=== PATIENT | male | born 1940 | race Caucasian/White ===

== ENCOUNTER 2019-03-20 20:16 | Inpatient (IN) | payer OTHER ==
[~2019-03-20] VITALS: Ht 188 cm; Wt 71.0 kg
[2019-03-20 19:55] VITALS: BP 91/69
[~2019-03-20 20:16] MED LIST: ASPIR 8181 MG PO; MAGOX 400400 MG PO; NF; PULMICORT0.5 MG/22 INH
[2019-03-20 22:31] LABS: BE(vivo) -2.8 mmol/L (-2 to +3); HCO3 23.4 mmol/L (22.0-26.0); PCO2 45.8 mmHg (35.0-45.0); sO2 92.5 % (92.0-98.0)
[2019-03-20 22:32] LABS: pH 7.326 (7.360-7.450)
--- NOTE | 2019-03-20 22:35 | NUR ---
PT TRANSFERED FROM CCU TO ICU AT 2200. PT ALERT AND ORIENTED X4. PT ST ON THE MONITOR. PT HAVING AUDIBLE WHEEZES AND GRUNTING AT TIMES. PT ON OPTIFLOW AT 35 L. 50 % FIO2. PT VERBALIZES, "I NEED MY ALBUTEROL INHAILER." SPOKE TO DR HERNANDEZ AT 2215 REGARDING RADIOLOGIST REPORT ON TENSION PNEUMOTHORAX WITH SLIGHT SHIFT TO THE RIGHT. IR TEAM CALLED BY WATCH MANUFACTURING SUPERVISOR. WILL CONTINUE TO MONITOR PT.
[2019-03-21] VITALS (23 sets, daily range): BP systolic 107–150; BP diastolic 45–86
--- NOTE | 2019-03-21 00:33 | NUR ---
PT LEFT FOR CHEST TUBE PLACEMENT BY DR CHANG AT 2159. ARRIVED BACK TO ICU AT 0013. PT EXPERIENCING CONSTANT DRY COUGH. PT C/O PAIN 10/10 AT CHEST TUBE PLACEMENT SITE. CHEST TUBE TO -20 SUCTION PER ORDERS. PT GIVEN MORPHINE FOR PAIN. WILL CONTINUE TO MONITOR.
[2019-03-21 05:30] LABS: HEMATOCRIT 37.7 % (42.0-52.0); HEMOGLOBIN 12.4 gm/dL (14.0-18.0); MCH 34.1 pg (26.0-34.0); MCHC 32.9 g/dL (28.0-37.0); MCV 103.8 fL (80.0-100.0); RBC 3.63 mil/uL (4.50-6.00); RDW 12.7 % (10.5-14.5); WBC 17.5 thou/uL (4.0-11.0)
[2019-03-21 05:35] LABS: APTT 26.4 Seconds (24.5-32.8); PROTIME 10.1 Seconds (9.3-11.4)
[2019-03-21 05:41] LABS: CALCIUM 8.6 mg/dL (8.5-10.1); CREATININE 1.2 mg/dL (0.7-1.3); POTASSIUM 5.2 mmol/L (3.5-5.1)
[2019-03-21] MEDS ORDERED: VITAMIN E400 UNIT PO (09:20)
[2019-03-21] MEDS ORDERED: NORWEGIAN COD1 EACH PO (09:21)
[2019-03-21] MEDS ORDERED: CALCIUM 600 +1 EAC1 PO (09:22)
[2019-03-21] MEDS ORDERED: KLOR-CON 1010 MEQ PO (09:23)
--- NOTE | 2019-03-21 10:51 | NUR ---
CM ASSESSMENT: CASE OPENED FOR DC PLANNING. CLINICAL INFO REVIEWED. PT DIRECT ADMITS FROM [facility], [place]IVES IN [place] 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 INDEPENDENT WITH ADLS, HAS HOME O2 AND NEBULIZER FROM [facility]. STATES USES O2 PRN 5 LITERS. ANA SOLITARIO IS HIS EPIC SPECIALIST, BULL DAILY HIS PCP. PT IS INDEPENDENT WITH ADLS AND ASSISTS WITH IADLS. HAS LEFT CT FROM PNEUMOTHORAX. CM AVAILABLE TO ASSIST WITH COORDINATION OF DC PLANS. POSSIBLE HH AT DC.
--- NOTE | 2019-03-21 13:53 | HC ---
[facility] [place] [address] CONSULTATION Name: KEVIN HAILE Room #: 247-P [facility] IN .R.#: [id number] Admission: 03/20/19 ������������������ Attend Phys: Larry Alan MD Discharge: ������������������ Date of : 40 Report #: [id number] THIS REPORT FOR: //name// CC: Larry Strong DATE OF SERVICE: 03/20/2019 PULMONARY CONSULTATION REFERRING PHYSICIAN: Dr. Alan. REASON FOR REFERRAL: Large left-sided pneumothorax. HISTORY OF PRESENT ILLNESS: The patient is a 78-year-old white male, with known COPD, transferred from [place], [place] for pneumothorax. A pulmonary consultation was requested. The patient was last hospitalized in June 2017. He has known COPD. He has smoked, but quit few years ago. The patient presented to the [facility] with complaints of dyspnea. Chest x-ray revealed pneumothorax. He was transferred here. Chest x-ray performed here shows a large, near complete left lung pneumothorax with slight shift of the mediastinum to the right. The patient appears dyspneic. Denies any chest pain. Denies any recent trauma. Stated his dyspnea occurred suddenly. The patient denies any past history of pneumothorax. 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 PAST SURGICAL HISTORY: Notable for repair of the abdominal aortic aneurysm in 2017 by a stent. ALLERGIES: None to medications. HOME MEDICATIONS: Include aspirin, nebulized Pulmicort, nebulized levalbuterol, ipratropium. FAMILY HISTORY: Notable for heart disease and hypertension in father. SOCIAL HISTORY: The patient has smoked up to 2 packs a day, quit in 2017. He [facility] [address] [place] [address] CONSULTATION Name: KEVIN HAILE Room #: 247-P [facility] IN ..#: [id number] Admission: 03/20/19 ������������������ Attend Phys: Larry Alan MD Discharge: ������������������ Date of : 40 Report #: [id number] quit drinking approximately 17 years ago. REVIEW OF SYSTEMS: As mentioned above, otherwise 10-point system review negative. PHYSICAL EXAMINATION: GENERAL: He is awake, alert, in mild distress due to dyspnea. VITAL SIGNS: Temperature is 97.5 degrees Fahrenheit, pulse is 100, respiratory rate is 20, blood pressure 90/69 mmHg, saturation is 92% on supplemental O2. HEENT: Normocephalic, atraumatic. NECK: Supple, without lymphadenopathy or thyromegaly. CHEST: Breath sounds are decreased in the right, absent in the left. No obvious wheezing. CARDIOVASCULAR: Normal S1, S2. There are no murmurs or gallop. There is no JVD, no carotid bruit. Pulses are 2+/4+ bilaterally. ABDOMEN: Soft, nontender, no organomegaly or masses felt. GENITOURINARY: Deferred. RECTAL: Deferred. EXTREMITIES: No edema, cyanosis or clubbing. Chest x-ray shows near complete pneumothorax in the left lung field. LABORATORY DATA: Arterial blood gas revealed pH 7.32, pCO2 of 45, pO2 of 70 on FiO2 of 50%. IMPRESSION: 1. Pneumothorax, complete pneumothorax on the left, large. Consult with interventional radiology for placement of chest tube. 2. Chronic obstructive pulmonary disease, emphysema in type. 3. History of tobacco use. 4. History of abdominal aortic aneurysm, status post repair. 5. Hypertension. RECOMMENDATIONS: As mentioned above, bronchodilators, corticosteroids and deep venous thrombosis and gastrointestinal prophylaxis will be initiated. If pneumothorax does not resolve over time, the patient may need surgical intervention. Thank you for this consultation. ��������������������������������������������� <ELECTRONICALLY SIGNED> ���������������������������������������� By: Jose Campos MD ��������������������������������������������� 03/21/19 1353 [id number] Jose Campos MD /nt
--- NOTE | 2019-03-21 17:52 | NUR ---
Patient progressing as tolerating diet without emesis or nausea. O2 weaned to 5l/NC, resp and heart rate increase with activity. Bubbling noted with chest tube,
--- NOTE | 2019-03-21 23:58 | NUR ---
A LARGE AIR LEAK NOTED IN CHEST TUBE CHAMBER AT 2330. NO SIGNS OF SUBCUTANEOUS AIR NOTED ON PALPATION AROUND CHEST TUBE INSERTION SITE. PT DOESN'T APPEAR TO BE IN ANY DISTRESS. SATTING 98% ON 7L O2 HIGH FLOW. WILL CONTINUE TO MONITOR.
[2019-03-22] VITALS (18 sets, daily range): BP systolic 99–136; BP diastolic 45–83
[2019-03-22 05:47] LABS: HEMOGLOBIN 12.3 gm/dL (14.0-18.0); MCH 34.2 pg (26.0-34.0); MCHC 33.2 g/dL (28.0-37.0); MCV 103.1 fL (80.0-100.0); RBC 3.59 mil/uL (4.50-6.00); RDW 12.5 % (10.5-14.5); WBC 12.4 thou/uL (4.0-11.0)
[2019-03-22 05:51] LABS: CALCIUM 8.7 mg/dL (8.5-10.1); CREATININE 1.1 mg/dL (0.7-1.3); POTASSIUM 4.8 mmol/L (3.5-5.1)
--- NOTE | 2019-03-22 18:26 | NUR ---
Explained all treatments and medications as given. Patient expressed he has pain control. Chest tube intact with some tidaling and bubbling noted, however, no increase in this occurance. Assessments and vital signs as documented. Plan of care is to continue to monitor patient assessments q4 hours, increase activity, pain control, and improved breathing. Patient progressing towards plan of care.
[2019-03-23] VITALS (7 sets, daily range): BP systolic 106–137; BP diastolic 52–73
--- NOTE | 2019-03-23 05:54 | NUR ---
END OF SHIFT SUMMARY: No events overnight; progressing toward goals. No c/o of SOA. Minimal pain at chest tube site. Left chest tube remains patent to -20 cmH20, still has small to moderate air leak, no crepitus or drainage this shift. O2 sat remains > 95% on 4 L HFC. Sat is 88-90% on room air. Monitor remains sinus rhythm. Voiding without difficulty.
--- NOTE | 2019-03-24 04:52 | NUR ---
RECEIVED PT'S CARE AT 1935; PT. ON BED; REQUESTED PRIVACY DUE TO VOIDING; DURING ASSESSMENT PT. AOX4; IRRITABLE DUE TO IV ALARM PUMP ON; REQUESTED TO KNOW HOW TO TURN PUMP OFF; EDUCATED TO CALL EVERY TIME PUMPS ALARM GOES OFF; ST. "OH GREAT"; "I CAN'T NOT BELIEVE THIS"; "I HAVE TO CALL YOU EVERY TIME"; L. SIDE CHEST TUBE ASSESS"; LEAK PRESENT; SUCTION ON; NO C/O SOB; NO RESTLESSS; PER PHYSICIAN NOTES; PHYSICIANS AWARED OF LEAK; EDUCATED ABOUT THE NEED TO KEEP O2 ON; NO ANSWER BACK; HS SCHEDULED MEDICATION GIVEN; EDUCATED ABOUT CALLING BEFORE GETTING OUT FROM BED; NOT ANSWER BACK; EYES ROLLED; ABLE TO TURN FROM SIDE TO SIDE; SCDs APPLIED; ABLE TO REST FOR A FEW HOURS WITH EYES CLOSED; ASSESSMENT CHARGED; FOLLOWING POC; MONITORING; WILL PASS ON REPORT.
[2019-03-24 05:20] VITALS: BP 118/71
[2019-03-24 07:35] VITALS: BP 127/85
[2019-03-24 10:50] VITALS: BP 117/756
[2019-03-24 15:50] VITALS: BP 140/93
--- NOTE | 2019-03-24 20:03 | NUR ---
ASSESSMENT CHARTED, VSS, ALERT AND ORIENTED, RIGHT CHEST TUBE, -20 SUCTION TO WALL, NO COMPLAINTS OF PAIN. UP TO CHAIR. WILL CONTINUE TO MONITOR
[2019-03-24 20:44] VITALS: BP 110/73
[2019-03-25 03:54] VITALS: BP 106/72
--- NOTE | 2019-03-25 06:04 | NUR ---
ASSESSMENT CHARTED. VSS. PT DENIES PAIN, N/V, DIZZINESS. X1 ASSIST TO COMMOD- 1 LARGE SOFT BROWN BM. 3 L NC. L CHEST TUBE IN PLACE, SMALL LEAK, DRESSING CDI. PT COMPLAINS OF BEING WOKEN UP, THERAPUTIC COMMUNICATION PT IS ABLE TO CALM DOWN AND SLEEP. WILL CONTINUE TO MONITOR AND WITH POC.
[2019-03-25 07:45] VITALS: BP 119/78
[2019-03-25 11:59] VITALS: BP 106/71
[2019-03-25 15:07] LABS: URINE BILIRUBIN NEGATIVE (Negative); URINE BLOOD NEGATIVE (Negative); URINE CLARITY CLEAR; URINE COLOR YELLOW; URINE GLUCOSE-RANDOM* NEGATIVE (Negative); URINE KETONES NEGATIVE (Negative); URINE LEUKOCYTES NEGATIVE (Negative); URINE NITRITE NEGATIVE (Negative); URINE PROTEIN (DIPSTICK) NEGATIVE (Negative); URINE SPECIFIC GRAVITY <= 1.005 (1.005-1.035); URINE UROBILINOGEN 0.2 E.U./dl (0.2-1.0)
[2019-03-25 15:20] VITALS: BP 121/72
--- NOTE | 2019-03-25 17:29 | NUR ---
ORDER RECEIVED FOR SURGERY ON 03/26/19. RECEIVING IV ANTIBIOTICS. CHEST TUBE STILL LEAKING WITH TIDALING. WILL CONTINUE TO ASSESS AND ASSIST WITH ADLs NEEDED.
[2019-03-25 20:45] VITALS: BP 99/67
[2019-03-26] VITALS (7 sets, daily range): BP systolic 80–118; BP diastolic 46–95
--- NOTE | 2019-03-26 02:35 | NUR ---
ASSESSMENT CHARTED. PT COMPLAINS OF BED ALARMS AND BEING WOKEN UP. DENIES CP, SOA, N/V, DIZZINESS. ST BY STEADY ON FEET. 3 L NC. L CHEST TUBE STILL LEAK TIDLING. HIBASCRUB PER ORDERS THIS EVENING. PLAN FOR SURGERY THIS AFTERNOON. WILL CONTINUE TO MONITOR AND WITH POC.
[2019-03-26 05:03] LABS: HEMOGLOBIN 13.1 gm/dL (14.0-18.0); MCH 34.5 pg (26.0-34.0); MCHC 33.6 g/dL (28.0-37.0); MCV 102.9 fL (80.0-100.0); RBC 3.79 mil/uL (4.50-6.00); RDW 12.1 % (10.5-14.5); WBC 11.4 thou/uL (4.0-11.0)
[2019-03-26 05:15] LABS: CALCIUM 8.8 mg/dL (8.5-10.1); MAGNESIUM 2.2 mg/dL (1.8-2.4); POTASSIUM 4.5 mmol/L (3.5-5.1); TOTAL BILIRUBIN 0.3 mg/dL (<0.1-1.0); TOTAL PROTEIN 6.5 g/dL (6.4-8.2)
[2019-03-26 05:45] LABS: FOLIC ACID 20.7 ng/mL (8.6-58.9)
--- NOTE | 2019-03-26 08:29 | NUR ---
PT NPO AND WILL HAE VATS PROCEDURE TODAY. WILL CONTINUE TO ASSESS.
--- NOTE | 2019-03-26 15:07 | NUR ---
Pt assessed for early day 6 LOS. Pt having surgery today - bronchoscopy with L vat per notes. NPO since midnight, but previously on a regular diet. Chart reviewed as pt unavailable. Eating extremely high PO the last 3 days with 92% meal average - typically eating 90-100% of most meals. Per orders, pt receiving Ensure Enlive up to twice daily - drinking 50-60% of 2 supplements yesterday before going NPO. Weight is up over nearly 2 yrs --> from 140.5# on 06/20/17 to current weight of 155.6# per 03/23/19. Low nutrition risk if diet able to resume when medically appropriate following surgery and if meal intakes remain > 75%. Will follow up again next week.
--- NOTE | 2019-03-26 17:07 | NUR ---
REPORT GIVEN TO PAYAL LEE IN THE ICU.
--- NOTE | 2019-03-26 18:55 | NUR ---
PT RECIEVED FROM OR POST L VATS PROCEDURE. PRECEDEX GTT RUNNING AT 0.5 MCG/KG/HR. PT WAS REPOSITIONED IN BED AND HOOKED UP TO CONTINUOUS MONITORING. CHEST TUBE WAS CONNECTED TO SUCTION. PT COMPLAINED OF PAIN 10/10, TREATED WITH PRN MORPHINE. NS @ 80ML/HR STARTED. PATIENT EDUCATED ON ROOM SETTINGS AND CALL LIGHT. ASSESSMENT COMPLETED BY THIS RN. BED ALARM SET. PT RESTING COMFORTABLY.
[2019-03-27] VITALS (26 sets, daily range): BP systolic 86–138; BP diastolic 46–98
[2019-03-27 06:04] LABS: BASOPHILS 0.4 % (0.0-2.0); EOSINOPHILS 0.1 % (0.0-3.0); HEMATOCRIT 36.1 % (42.0-52.0); HEMOGLOBIN 12.1 gm/dL (14.0-18.0); LYMPHOCYTES 7.8 % (24.0-44.0); MCH 34.2 pg (26.0-34.0); MCHC 33.6 g/dL (28.0-37.0); MCV 101.9 fL (80.0-100.0); MONOCYTES 8.1 % (1.0-8.0); PLATELET COUNT 205 thou/uL (150-400); POLYS 83.6 % (36.0-66.0); RBC 3.54 mil/uL (4.50-6.00); RDW 12.2 % (10.5-14.5); WBC 16.8 thou/uL (4.0-11.0)
--- NOTE | 2019-03-27 06:06 | NUR ---
END OF SHIT NOTE: ASSUMED CARE AT 1900 03/26. NO EVENTS OVER NIGHT. COMPLAINED OF SHARP/STABBING PAIN AT CHEST TUBE SITE, TREATED WITH PRN MORPHINE. CT REMAINS CONNECTED TO CONTINUOUS SUCTION AT -89gxN19. ORDERS TO ADVANCE DIET TOLERATED, PT SO FAR HAS ONLY REQUESTED ICE CHIPS. PT W/O FALLS, ALL HIGH FALL PRECAUTIONS IN PLACE. PT RESTING COMFORTABLY.
[2019-03-27 06:26] LABS: ALBUMIN 2.6 g/dL (3.4-5.0); CREATININE 0.9 mg/dL (0.7-1.3); POTASSIUM 4.9 mmol/L (3.5-5.1); TOTAL BILIRUBIN 0.6 mg/dL (<0.1-1.0); TOTAL PROTEIN 5.8 g/dL (6.4-8.2)
[2019-03-27 06:38] LABS: BE(vivo) 2.3 mmol/L (-2 to +3); HCO3 26.9 mmol/L (22.0-26.0); PCO2 42.1 mmHg (35.0-45.0); PO2 90.2 mmHg (80.0-100.0); pH 7.424 (7.360-7.450)
--- NOTE | 2019-03-27 10:07 | NUR ---
ASSUMMED CARE OF PT.--VW
--- NOTE | 2019-03-27 11:51 | NUR ---
FOLLOWING FOR DC PLANNING. ADMIT WITH PNEUMOTHORAX AND HAD CHEST TUBE WITH AIR LEAK FOR SEVERAL DAYS, NOW IS POD #1 VAT WITH PLEURODESIS. LEFT CHEST TUBE REMAINS. HX COPD. LIVES WITH SPOUSE WHO IS MUCH YOUNGER AND 8 Y.O. SON AND ACTIVE QUALITY ASSURANCE. WILL RESUME PT/OT TO DETERMINE IF REHAB NEEDED.
--- NOTE | 2019-03-27 13:00 | NUR ---
~1100-PT W INAPPROPRIATE COMMENTS TO NSG STAFF.LIMITS SET.CARE TURNED OVER TO ON COMING RN. SEVERAL FOOD OPTIONS BROUGHT TO PT-HE IS REFUSING THEM ALL.--VW
--- NOTE | 2019-03-27 13:38 | HC ---
[facility] [place] [address] CONSULTATION Name: KEVIN HAILE Room #: 245-P [facility] IN ..#: [id number] Admission: 03/20/19 ������������������ Attend Phys: Larry Alan MD Discharge: ������������������ Date of : 40 Report #: [id number] THIS REPORT FOR: //name// CC: Larry Strong DATE OF SERVICE: 03/21/2019 HISTORY OF PRESENT ILLNESS: Consultation from Dr. Campos regarding left pneumothorax with pleural chest tube placed and air leak. The patient was a direct admit from [facility] for pneumothorax. The patient has had a small pleural chest tube placed on the left side and remains having a vtfx-kp-thlterrr air leak. Chest x-ray shows lung is re-expanded post pleural chest tube placement. PAST MEDICAL HISTORY: COPD, pneumonia and anxiety. 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 History of pneumonia, anxiety, asthma, alcohol abuse, tobacco abuse and a chronic back pain. PAST SURGICAL HISTORY: Infrarenal abdominal aortic stent graft placement. The patient did also have a history of a large bleb in the past in 2017, but no treatment reported at that time. The patient denies ever having had a previous chest tube placed. SOCIAL HISTORY: The patient is . Smokes a pack a day, essentially his whole life as per the patient; he did quit, he states, a few months ago. FAMILY HISTORY: Father had heart disease. Mother, not reported. Father also has hypertension. ALLERGIES: No known allergies. 1. HOME MEDICATIONS: 2. 1. Aspirin. 3. 2. Caltrate. 4. 3. Potassium chloride. 5. 4. Pulmicort. 6. 5. Mag oxide 400 mg. 7. 6. Vitamin A and vitamin D combination. 8. 7. Vitamin E. 9. 8. ProAir inhaler. 10. 9. Atrovent. 10. Albuterol. REVIEW OF SYSTEMS: Review of systems completed. GENERAL: The patient denies any fatigue, difficulty sleeping. [facility] [address] [address] CONSULTATION Name: MICKEVIN Melita Room #: [address] [place] [address] [place] ..#: [id number] Admission: 03/20/19 ������������������ Attend Phys: Larry Alan MD Discharge: ������������������ Date of : 40 Report #: [id number] HEENT: Denies any headache, vertigo or hearing loss. RESPIRATORY: Denies any dyspnea on exertion or orthopnea. Does have some shortness of breath related to this incident. Denies any wheezing or coughing. CARDIOVASCULAR: Denies any chest pain, jaw pain or murmur. SKIN: Denies any rashes, eczema or psoriasis. ENDOCRINE: Denies cold feet, night sweats or lack of concentration. GASTROINTESTINAL: Denies any nausea, vomiting, diarrhea or constipation. GENITOURINARY: Denies any urinary frequency, bloody urine or painful urination. NEUROLOGIC: Denies any seizures or neuropathy. PSYCHIATRIC: Denies any hallucination. Denies depression, but does have anxiety. MUSCULOSKELETAL: Denies joint pain, stiffness or swelling; however, does have some lower back discomfort at times. IMMUNOLOGIC: Denies any lupus, rheumatoid arthritis or celiac disease. PHYSICAL EXAMINATION: VITAL SIGNS: Blood pressure is 116/60, pulse 83, sinus rhythm on monitor, temperature 36.1 and O2 sat 94% on 5 liters of oxygen via nasal cannula. GENERAL: The patient is well developed, well nourished, has normal mentation. HEENT: Eyes are PERRLA. He is normocephalic. Gaze appearing conjugate in all positions. No evidence of nystagmus. CARDIOVASCULAR EXAMINATION: Shows regular rate and rhythm, S1, S2, without murmur, gallops or thrills. LUNGS: Right is clear. Left has fine crackles to apex, slightly more coarse to the base. ABDOMEN: Soft, nontender. Bowel sounds are present in all 4 quadrants. SKIN: Shows normal color, normal turgor. NEUROLOGIC: Cranial nerves 2-12 are examined and are intact. The patient is alert and oriented x 3. LABORATORY DATA: Labs are as follows: Sodium is 136, potassium 5.2, BUN is 28, creatinine is 1.2 and glucose 133. White blood cell count is 17.5, hemoglobin 12.4, hematocrit 37.7 and platelets are 242,000. ASSESSMENT: Left pneumothorax, more likely secondary to possible blebs and chronic obstructive pulmonary disease with pleural chest tube placed, with a mwcvy-dn-bdmnvvgx air leak; history of chronic obstructive pulmonary disease and history of tobacco abuse. PLAN: At this point, we will continue to watch the pleural chest tube, daily x-rays. If the patient becomes worsening with shortness of breath with lung collapse and/or worsening of the air leak, then we will proceed on for a possible VAT or some surgical solution as it presents. Until then, we will continue to watch the pleural chest tube. As the air leak subsides, we may consider removing chest tube based on chest x-rays and air leak and the [facility] [address] [place] [address] CONSULTATION Name: KEVIN HAILE Room #: 245-P ADM IN .R.#: [id number] Admission: 03/20/19 ������������������ Attend Phys: Larry Alan MD Discharge: ������������������ Date of : 40 Report #: [id number] patient's overall demeanor and appearance. Dr. Richter will see the patient soon. ��������������������������������������������� <ELECTRONICALLY SIGNED> ���������������������������������������� By: CHUCK Avelar ��������������������������������������������� 03/27/19 1338 [id number] CHUCK Avelar /nt
--- NOTE | 2019-03-27 16:24 | NUR ---
AAOX4. TRANSFERRED FROM ICU BY , ACCOMPANIED BY JESUS DONALD. REPORT FROM JESUS DONALD. CHEST TUBE WITH OBVIOUS AIR LEAK. MILD SOB WITH ACTIVITY BUT RECOVERS SOON. DECEMBER AT BEDSIDE. PAIN CONTROL DISCUSSED. WILL CONTINUE TO FOLLOW.
[2019-03-28 01:30] VITALS: BP 157/74
--- NOTE | 2019-03-28 05:45 | NUR ---
RECEIVED PT'S CARE AT 1930; PT. ON BED; AT THE BEDSIDE; AOX4; DURING ASSESSMENT C/O L. FLANK PAIN; ST. ABLE TO TOLERATE UNTIL NEXT PRN SCHEDULE DOSE PAIN MEDICATION; UPSET WHEN BED ALARM ON; REFUSED EDUCATION ABOUT; SHOUT " I WILL CALL YOU IF I NEED TO GET UP"; "BELIEVE ME I WILL CALL YOU"; "I WILL SIGN ANYTHING THAT I NEED TO SIGN"; AT THE BED SIDE; ASKED IF REFUSED BED ALARM; ST. "YES"; SHOUT "I MOVE AND THAT THING GOES"; "I CAN'T SLEEP"; BED ALARM OFF; L. SIDE CT. DRESSING INTACT; CHECK CT CHARTING; NO INCREASE SOB; REQUESTED PRN PAIN MEDICATION TWICE DURING THE NIGHT; PRN PAIN MEDICATION GIVEN; ST. ABLE TO REST 2 1/2 DURING THE NIGHT; VS WNL; ASSESSMENT CHARGED; FOLLOWING POC; MONITORING; WILL PASS ON REPORT.
[2019-03-28 07:59] VITALS: BP 138/79
[2019-03-28 12:51] VITALS: BP 131/60
--- NOTE | 2019-03-28 15:07 | PATH ---
[facility] [place] [address] PATHOLOGY RPT PROCEDURE Name: BASSAM HAILE Room #: 210-P ADM IN M.R.#: [id number] ������������������ Admission: 03/20/19 ������������������ Date of : 40 Discharge: Report #: [id number] Path Case #: [id number] [facility] Accession Number: [id number] . 01 Material submitted: . lung - LEFT UPPER LOBE BLEBS. Modifiers: left, upper lobe . 01 Clinical history: . Left pneumothorax. . 02 Diagnosis: Lung, left upper lobe, wedge resection: - Portions of lung parenchyma with blebs and focal mild chronic inflammation. . (SKM:mml; 03/28/2019) QLM/03/28/2019 . 02 Electronically signed: . Norman Arambula MD, Pathologist NPI- [id number] . 01 Gross description: . Received in formalin labeled "Bassam Haile, left upper lobe blebs" are lung wedge specimens measuring in aggregate 6.8 x 3.7 x 1.5 cm and ranging from 3.0-6.0 cm in greatest dimension. Staple lines are present on all three pieces. The pleural surfaces are pink-red and smooth with focal ragged areas. Upon sectioning, the cut surfaces display grossly identifiable air filled blebs ranging from 1.3-2.0 cm in greatest dimension each. The largest bleb is previously opened. The uninvolved lung parenchyma is red-brown and hemorrhagic. 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 ([facility] [place] [place]; 03/27/2019) SYC/SYC . 02 Pathologist provided ICD-10: J43.9, J98.4 . 02 CPT . 374168 Specimen Comment: A courtesy copy of this report has been sent to Specimen Comment: [phone], , . Specimen Comment: Report sent to ,DR BECERRA / DR REYNOLDS Performed at: [address] [facility] [address] [place] [address] [id number] MD Real Armijo MD Phone: [phone] Performed at: [address] [address] PATHOLOGY RPT PROCEDURE Name: BASSAM HAILE Room #: 210-P ADM IN M.R.#: [id number] ������������������ Admission: 03/20/19 ������������������ Date of : 40 Discharge: Report #: [id number] Path Case #: [id number] [facility] [address], [place], [place] [id number] MD Meche Ferreira MD Phone: [phone]
[2019-03-28 17:09] VITALS: BP 135/82
--- NOTE | 2019-03-28 19:39 | NUR ---
ASSUMED CARE AT 0700, SHIFT ASSESSMENT DONE, MEDS GIVEN, VSS. THIS AM AFTER SHIFT CHANGE, CHEST TUBE CAME OUT DETENTION. DR SOLANO WAS AT THE BEDSIDE, INSRTED ANOTHER CHEST TUBE IN. ALTER ON, IT WAS NOTICED THAT CHEST TUBE WAS NOT SITTING IN THE RIGHT PLACE. IR CONSULT FOR NEW CHEST TUBE PLACEMENT, NPO AT 1100. REFUSED TO TAKE ALL PO MEDS THIS AM. WENT FOR CHEST TUBE REVISION AT 1400, CAME BACK AT 1500 WITH A SECOND CHEST TUBE, ON THE LEFT SITE. AFTER REPORT TIDALING WAS NOTED. REPORTED PAIN, PRN PAIN MEDS GIVEN. AT SHIFT CHANGE, ON THE NEW CHEST TUBE, INCREASED BUBBLING NOTED. PAGE SENT OUT TO DR SOLANO, AWAITING FOR CALL BACK.
[2019-03-28 19:59] VITALS: BP 132/102
[2019-03-29 00:19] VITALS: BP 155/89
--- NOTE | 2019-03-29 03:48 | NUR ---
RECEIVED PT. AT 1900; PT. SITTING ON THE SIDE OF THE BED; AOX4; C/O PAIN; EDUCATED NEXT PRN PAIN MEDICATION AT 1945; CTX2 ON SUCTION TO WALL -20; ST. LEAK ON BOTH DRAINAGE SYSTEMS; PER NURSING REPORT; NEW DRAINAGE SYSTEM SHOW INCREASE LEAKING; CONNECTIONS ASSESSED; NO NEW FINDING; CT ON PLACE; PHYSICIAN NOTIFIED BY MORNING NURSE; PT. EDUCATED ABOUT CALLING WHENEVER STAND UP OR LIED DOWN; ST. UNDERSTANDING; DURING ASSESSMENT PT. C/O PAIN ON L/ SIDE CHEST; NO CREPITUS; CONECCTIONS ON PLACE; NO NEW FINDING ON DRAINAGE SYSTEM; ST. NO INCREASE SOB; PRN PAIN MEDICATION SYSTEM; CLOSE TO 2100 DR. SHI AT BED SIDE; REQUESTED LESS TAPE AROUND CHEST TUBE & DRAINAGE SYSTEM; PT. BACK ON BED; REFUSED BED ALARM; EDUCATED ABOUT CALLING; ST. UNDERSTANDING; FREQUENTLY ROUNDING; CT & DRAINAGE ASSESS THROUGH THE NIGHT; NO NEW FINDINGS; PT. REQUESTED PRN PAIN MEDICATION AT MIDNIGHT; PRN PAIN MEDICATION GIVEN; VS WNL; NO C/O INCREASE SOB; ASSESSMENT CHARGED FOLLOWING POC; MONITORING; WILL PASS ON REPORT.
[2019-03-29 05:35] LABS: CALCIUM 8.8 mg/dL (8.5-10.1); CREATININE 0.8 mg/dL (0.7-1.3); MAGNESIUM 2.1 mg/dL (1.8-2.4); POTASSIUM 4.6 mmol/L (3.5-5.1)
[2019-03-29 05:38] LABS: ABSOLUTE NEUTROPHILS 10.4 thou/uL (1.4-8.2); BASOPHILS 0.5 % (0.0-2.0); EOSINOPHILS 0.1 % (0.0-3.0); HEMATOCRIT 38.5 % (42.0-52.0); HEMOGLOBIN 12.7 gm/dL (14.0-18.0); LYMPHOCYTES 6.9 % (24.0-44.0); MCH 34.2 pg (26.0-34.0); MCV 103.8 fL (80.0-100.0); MONOCYTES 9.2 % (1.0-8.0); PLATELET COUNT 218 thou/uL (150-400); POLYS 83.3 % (36.0-66.0); RDW 12.1 % (10.5-14.5); WBC 12.5 thou/uL (4.0-11.0)
[2019-03-29 07:00] VITALS: BP 135/92
--- NOTE | 2019-03-29 10:38 | O ---
[facility] [place] [place] [address] OPERATIVE REPORT Name: KEVIN HAILE Room #: 210-P [facility] IN M.R.#: [id number] Admission: 03/20/19 ������������������ Attend Phys: Larry Alan MD Discharge: ������������������ Date of : 40 Report #: [id number] THIS REPORT FOR: //name// CC: Larry Strong DATE OF SERVICE: 03/26/2019 PREOPERATIVE DIAGNOSIS: Spontaneous pneumothorax with persistent air leak. POSTOPERATIVE DIAGNOSIS: Spontaneous pneumothorax with persistent air leak. OPERATION: Bronchoscopy, left video-assisted thoracoscopy, bleb resection and doxycycline pleurodesis. SURGEON: Freddy Montero MD ANESTHESIA: General. INDICATIONS: The patient is a 78-year-old with chronic obstructive pulmonary disease, bullous emphysema, and a spontaneous pneumothorax. Chest tube had been placed for this, but leak had persisted and this mandated surgery. FINDINGS AND TECHNIQUE: After general anesthesia was established, flexible diagnostic bronchoscopy was performed. No endobronchial lesions were noted. There were some thick white secretions in the tracheobronchial tree. Double lumen tube was positioned and its position ascertained endoscopically. The patient was positioned with left side up. Exposure was obtained through video-assisted thoracoscopy ports. There were adhesions between the lateral and apical lung and chest wall. These were divided with cautery and then the lung was inspected. Large blebs were seen at the apex. It was not obvious where the leak was, however, the blebs were resected with multiple applications of the stapler, 3 blebs in particular were divided. The lung was reinflated and no obvious air leak was seen. At this point, a pleural stripping was done and then doxycycline solution was instilled into the chest. The chest tube was placed in the postural apical area through the lowest port and the other ports were closed in layers. The patient tolerated all of this well and was taken to the recovery area in good condition. All counts reported as correct. ��������������������������������������������� <ELECTRONICALLY SIGNED> ���������������������������������������� By: Freddy Montero MD ��������������������������������������������� 03/29/19 1038 0751 [id number] Freddy Montero MD /nt
[2019-03-29 11:48] VITALS: BP 122/73
--- NOTE | 2019-03-29 12:59 | NUR ---
ASSUMED CARE OF PT APPROX 0715, ALLOWED ASSESSMENT YET ASKS FOR MEDICATION THEN STATES HE'S BUSY AND TO RETURN WITH THE MEDICATIONS. SAID HE WAS VERY HUNGRY THIS A.M. AFTER GOING A FULL DAY. IS CAUTIOUS WITH TUBES TO ENSURE SAFETY,ENCOURAGED ALL TO USE CALL LIGHT FOR ANY NEEDS
[2019-03-29 15:22] VITALS: BP 124/71
[2019-03-29 20:01] VITALS: BP 119/90
[2019-03-30 05:05] VITALS: BP 119/66
--- NOTE | 2019-03-30 08:27 | NUR ---
ASSUME CARE 1900. PT /VITALS STABLE. INTERMITTENT INCISIONAL PAIN. MORPHINE AND NORCO FOR PAIN MANAGEMENT. CHEST TUBES IN PLACE AND SECURED. AIR LEAK NOTED/MD AWARE. SEROUSSANG DRAIANGE NOTED FROM BOTH CHEST TUBES. ASSESSMENT CHARTED. PROGRESSING VERY SLOWLY TO POC. PT NEEDS A LOT OF EDUCATION ON COMPLIANCE TO TREATMENT AND PROCEDURE. REFUSES DAILY WEIGHTS. WILL CONTINUE TO MONITOR AND FOLLOW WITH POC
[2019-03-30 08:35] VITALS: BP 125/89
[2019-03-30 11:50] VITALS: BP 124/56
--- NOTE | 2019-03-30 11:53 | NUR ---
ASSUMED CARE OF PT APPROX 0715, CHEST TUBES/BANDAGES INTACT, [employer] DRAINING SYSTEM WORKING, PHYSICIANS IN ROOM DISCUSSING PLAN. PT STILL REFUSING BED ALARM AND BLOOD SUGAR AT NOON EVEN WITH GENTLE THOROUGH INSTRUCTION. CAN BE AGITATED AND LOUD YET ALSO HUMOROUS AT TIMES. ENCOURAGED TO USE CALL LIGHT FOR ANY NEEDS
--- NOTE | 2019-03-30 13:43 | NUR ---
pt called to let us know his lower ct site was bleeding, called dr. espinoza and lvm with his answering service, nothing else going on w/pt at this time other than he's visiting w/friends
[2019-03-30 18:17] VITALS: BP 109/61
[2019-03-30 20:31] VITALS: BP 127/70
[2019-03-31] VITALS (11 sets, daily range): BP systolic 104–142; BP diastolic 56–76
--- NOTE | 2019-03-31 03:35 | NUR ---
ASSESSMENT CHARTED VSS. PT DENIES SOA, DIZZINESS, N/V. C/O LEFT SIDED CHEST PAIN WHEN COUGHING CONTROLED WITH PRN PAIN MEDS PER EMAR. X2 CT LEFT SIDE- TIDALING SMALL LEAK PROVIDER AWAY. RUSS CALLED ORDERS FOR NPO, TYPE AND SCREEN, REMDINDED ABOUT CT LEAKAGE- POSSIBLE PROCEDURE TOMORROW. VOIDS PER URINAL. REFUSES BED ALARMS AND KEEPS WEARING HIS O2 ON HIS FOREHEAD- EDUCATED.WILL CONTINUE TO MONITOR AND WITH POC.
[2019-03-31 12:56] LABS: HEMATOCRIT 39.3 % (42.0-52.0); HEMOGLOBIN 13.2 gm/dL (14.0-18.0); MCH 34.7 pg (26.0-34.0); MCHC 33.6 g/dL (28.0-37.0); MCV 103.2 fL (80.0-100.0); RBC 3.81 mil/uL (4.50-6.00); RDW 12.2 % (10.5-14.5); WBC 14.9 thou/uL (4.0-11.0)
[2019-03-31 13:02] LABS: CALCIUM 8.7 mg/dL (8.5-10.1); POTASSIUM 4.1 mmol/L (3.5-5.1)
--- NOTE | 2019-03-31 17:11 | NUR ---
PT CARE ASSUMED APPROX 1130. PT ALERT AND ORIENTED X4. DENIES PAIN AND SOA. VSS. PT WENT TO SURGERY FOR VATS APPROX 1400. DENIED QUESTIONS OR CONCERNS REGARDING POC. GIVEN CLINICAL UPDATE AFTER PROVIDING PT PASSCODE. PT TO TRANSFER TO ICU POSTOP. UPDATED WITH THAT INFO ALSO. SHE DENIES CONCERNS AT THIS TIME. PT WAS ON LR AT TIME HE LEFT UNIT. NO DISTRESS NOTED. ICU NURSE WAS CALLED TO GIVE REPORT BUT WAS BUSY AT THAT TIME. THIS NURSE TOLD RECEIVING NURSE TO JUST CALL CCU WHEN READY TO TAKE REPORT.
--- NOTE | 2019-03-31 17:19 | NUR ---
FOLLOWINIG FOR DC PLANNING. VAT WITH BLEB RESECTION AND DOXY PLEURODESIS 03/26 WITH POST OP CHEST TUBE WITH PERSISTENT AIR LEAK. NOW POST OP BRONCH/LEFT VAT AND BLEB RESECTION 03/31 AND IN ICU AFTER SURGERY. PT LIVES WITH SPOUSE AND SON, HOME O2 AND PREVIOUSLY ACTIVE.
--- NOTE | 2019-03-31 17:25 | NUR ---
PATIENT ADMITTED INTO 244 PER BED FROM PACU, POST VAT WITH A BLEB RESECTION. ATTACHED TO MONITOR AND HARPAL ZEROED. PATIENT ALERT AND STATES THAT HIS PAIN IS A 7/10. 2 CT ON THE RIGHT BUBBLING AND SUPQ EMPHYSEMA NOTED FROM LEFT SIDE OF NECK TO TOP OF DRESSING AND OVER LEFT BREAST AROUND TO MID CLAVICULAR LINE.
--- NOTE | 2019-03-31 17:31 | NUR ---
PT TX TO ICU S/P SURGICAL INTERVENTIONS. PT PLACED ON HOLD PER DEPT POLICY. REQUEST NEW P.T. ORDERS ONCE PT IS APPROPRIATE TO PARTICIPATE IN THERAPEUTIC INTERVENTIONS.
--- NOTE | 2019-03-31 18:44 | NUR ---
REPORT CALLED TO ICU NURSE. DENIES QUESTIONS AND CONCERNS REGARDING ASSUMING CARE. WILL CALL PT'S TO INFORM HER OF TRNASFER SHE REQUESTED EARLIER THIS SHIFT. ALL BELONGINGS TAKEN TO ICU ROOM.
--- NOTE | 2019-03-31 19:00 | NUR ---
PATIENT TAKING ICE CHIPS WITHOUT NAUSEA OR EMESIS, POOR PAIN RELIEF FROM FENTANYL WILL REEVALUATE PLAN WITH PATIENT.
[2019-04-01] VITALS (20 sets, daily range): BP systolic 107–138; BP diastolic 54–77
[2019-04-01 04:47] LABS: CALCIUM 8.2 mg/dL (8.5-10.1); CREATININE 0.9 mg/dL (0.7-1.3); POTASSIUM 4.7 mmol/L (3.5-5.1)
--- NOTE | 2019-04-01 06:50 | NUR ---
PATIENT TRANSFERRED TO ICU, WILL AWAIT NEW OT ORDERS ONCE MEDICALLY APPROPRIATE.
--- NOTE | 2019-04-01 08:00 | NUR ---
[facility]. PATIENT ASSESSED. HARPAL READING HIGHER THAN CUFF AND NOTED TO BE 20 TO 30 MMHG HIGHER THAN CUFF.
--- NOTE | 2019-04-01 08:13 | NUR ---
PT'S PAIN WAS WELL CONTROLLED LAST NIGHT, CHEST TUBE PATENT AND DRAINING SEROSANGUNIOUS FLUID 180 CC OVERNIGHT. SUBQ EMPYSEMA ON LEFT LATERAL SIDE TO LEFT NECK REMAINS UNCHANGED. VITALS WNL, PT ON 5L OF OXYGEN. PT IS TOLERATING LIQUIDS AND SOLIDS WELL.
--- NOTE | 2019-04-01 09:28 | NUR ---
Followup: S/P VATS 03/26, and bleb resection on 03/31 with transfer to ICU. Visit this am, pt upset that breakfast tray not delivered yet. Clarified with RN and provided his tray. Appetite is very good and pt likes to drink Ensure Enlive twice daily. Upset that was still receiving a regular, low fat diet. Stated he discussed with physician and RN that was supposed to be on regular only because he voiced a wt loss hx 40 lb over few years. 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 Consider low nutrition risk as eating >80% and taking Ensure supplements which contain 350 scott/serving.
--- NOTE | 2019-04-01 19:00 | NUR ---
PATIENT PROGRESSING TOWARDS GOALS PAIN WAS CONTROLLED, UP TO THE CHAIR. OSEI DC'D AND VOIDING WITHOUT DIFFICULTY.
--- NOTE | 2019-04-01 21:06 | NUR ---
ASSUMED CARE OF PATIENT AT 1900. VSS, AFEBRILE. STATES PAIN IS MUCH MORE MANAGEABLE. ORDERS TO TRANSFER TO CCU ON FILE. WILL GIVE REPORT AND TAKE HIM TO NEW ROOM.
[2019-04-02 04:19] VITALS: BP 112/73
--- NOTE | 2019-04-02 06:42 | NUR ---
Transferred from ICU last night. Medicated for pain with some relief. He slept fair during the night. SR to low ST per monitor. O2 at 4L/NC , no respiratory distress. Left chest tube in place with 150 ml output this shift. Air leak present and subcutaneous emphysema present around the area (chest and back). Thoracotomy incision and chest tube site with dressing intact. Voided per urinal. Refuses bed alarm at times but calls appropriately if he needs assistance. Will continue to monitor. Making progress towards care plan goals.
[2019-04-02 07:44] VITALS: BP 105/68
[2019-04-02 11:42] VITALS: BP 107/56
[2019-04-02 17:16] VITALS: BP 114/70
[2019-04-02 19:15] VITALS: BP 100/67
--- NOTE | 2019-04-02 19:27 | NUR ---
AAOX4 VERY PLEASANT AND COOPERATIVE. TAKES FENTANYL AND HYDROCODONE FOR PAIN WITH GOOD RELIEF. CHEST TUBE LEFT WITH SMALL AIR LEAK AT -10 SUCTION. VOIDS PER URINAL. GOOD APPETITE FOR MEALS. AMBULATED WITH PHYSICAL THERAPY AND SAT UP MOST OF SHIFT. FAMILY AT BEDSIDE MOST OF SHIFT.
[2019-04-03 03:20] VITALS: BP 96/55
--- NOTE | 2019-04-03 06:48 | NUR ---
PATIENTS CARES WERE ASSUMED AT SHIFT CHANGE. PATIENT WAS ASSESSED AND MEDS WERE PASSED. CARE OF THE CHEST TUBE WAS DONE SEAL IS INTACK. BUBBLES ARE PRESENT IN THE CHEST TUBE. PATIENT MEDS Q4 HOURS AND THIS APPERED TO KEEP HIM COMFORTABLE. ROUNDING WAS DONE. THE BED IS IN A LOW AND LOCKED POSITION.
[2019-04-03 08:15] VITALS: BP 101/59
[2019-04-03 11:05] VITALS: BP 90/58
--- NOTE | 2019-04-03 12:25 | NUR ---
Calorie count ordered and will start 04/03-04/04
--- NOTE | 2019-04-03 14:43 | PATH ---
[facility] [address] [place] [address] PATHOLOGY RPT PROCEDURE Name: KEVIN HAILE Melita Room #: 201-P ADM IN M.R.#: [id number] ������������������ Admission: 03/20/19 ������������������ Date of : 40 Discharge: Report #: [id number] Path Case #: [id number] [facility] Accession Number: [id number] . 01 Material submitted: . lung - BLEBS. Modifiers: left . 01 Clinical history: . Persistent air leak, pneumothorax . 02 Diagnosis: Lung, blebs, VATS with wedge resection: - Lung parenchyma showing marked emphysematous changes along with reactive changes. - Mild chronic inflammation. - Extensive hemorrhage, consistent with the provided history of bleb. (IUV:gun tester; 04/03/2019) MBR/04/03/2019 . 02 Electronically signed: . Meche Ferreira MD, Pathologist NPI- [id number] . 01 Gross description: . The specimen is received in formalin, labeled "alysa Beckett". The site is verified on the problem specimen form as, "left lung". Received are two segments of nam-brown lung tissue measuring 2.0 x 0.8 x 0.2 and 5.3 x 1.3 x 1.2 cm in greatest dimensions. The michael are removed. Sectioning through the smaller segment reveals red-brown, spongy cut surfaces. Sectioning through the larger segment reveals spongy cut surfaces with multiple air-filled pockets. No distinct nodules or lesions are noted grossly. The specimen is submitted representatively in cassettes A1 and A2. (CAA; 04/02/2019) QAC/QAC . 02 Pathologist provided ICD-10: J43.9, J98.4 . 02 CPT . 435314 Specimen Comment: A courtesy copy of this report has been sent to Specimen Comment: [phone], , . Specimen Comment: Report sent to ,DR BECERRA / DR REYNOLDS Performed at: [address] [facility], [place] [id number] [place] [address] PATHOLOGY RPT PROCEDURE Name: KEVIN HAILE Room #: 201-P ADM IN M.R.#: [id number] ������������������ Admission: 03/20/19 ������������������ Date of : 40 Discharge: Report #: [id number] Path Case #: [id number] MD Real Armijo MD Phone: [phone] Performed at: [address] [id number] MD Meche Ferreira MD Phone: [phone]
[2019-04-03 16:08] VITALS: BP 101/63
--- NOTE | 2019-04-03 19:53 | NUR ---
ASSUMED CARE OF PATIENT AT 0700. ASSESSMENT CHARTED. PATIENT C/O LEFT SIDED POSTERIOR FLANK PAIN FROM CHEST TUBE AT 7-9/10. PATIENT'S PAIN TREATED WITH FENTANYL 50 Q 2 HOURS WITH MINIMAL RELIEF. PATIENT FINALLY STATED THAT HE WAS BEGINNING TO FEEL COMFORTABLE AROUND 1600. CHEST TUBE OUTPUT OF 200 ML AT -40 SUCTION. PATIENT WAS TOO UNCOMFORTABLY TO PARTICIPATE IN PT/OT BUT PLANS TO PARTICIPATE TOMORROW. PATIENT WAS ABLE TO BREATHE WITH GREATER EASE THE DAY CONTINUED ON. PATIENT SAT UP IN CHAIR FOR THE ENTIRETY OF THE DAY. CONTINUE WITH POC.
[2019-04-03 19:55] VITALS: BP 130/58
[2019-04-03 23:33] VITALS: BP 115/72
[2019-04-04 04:45] VITALS: BP 94/64
[2019-04-04 07:25] VITALS: BP 101/63
--- NOTE | 2019-04-04 08:32 | NUR ---
ASSUMED CARE OF PT APPROX 0700, A&0X4, C/O PAIN THAT WE WILL MANAGED ROUND THE CLOCK. CHEST TUBE DRAINAGE SYSTEM BUBBLING, AND HAS BEEN THROUGHOUT STAY, DOCTORS AWARE. CARDIAC MONITORING, SEE SEPARATE INTERVENTIONS FOR ASSESSMENTS. NIGHT CHARGE STATES SHE 'CHANGED OUT LINES'. PT APPEARS IN [facility] [employer]. COMM W/DR. BECERRA THAT PT'S ADMISSION ORDER SHOWS ICU, NEEDS CCU. PT STATES POSSIBLE SURGERY THIS SUNDAY TO REMOVE PART OF HIS LUNG. ENCOURAGED HIM TO USE CALL LIGHT FOR ANY NEEDS
--- NOTE | 2019-04-04 10:22 | NUR ---
SUPPLEMENTATION: PT SAVES HIS SUPPLEMENT TO DRINK THROUGHOUT THE NIGHT, THEREFORE CHARTING WILL SHOW 100% CONSUMPTION. HE STATES HE EATS THROUGHOUT THE NIGHT AND THIS WAY HE HAS SOMETHING. ALSO LET HIM KNOW WE HAVE OTHER SNACKS HE CAN ASK FOR. HE'S SPEAKING OF NEEDING PROBIOTICS, TOLD HIM I'D ASK PHYSICIAN, HE DECLINED WITH SOME CUSSING. PT IS HUMOROUS, OTHER TIMES INTERRUPTIVE AND LOUD
[2019-04-04 11:40] VITALS: BP 130/60
--- NOTE | 2019-04-04 11:52 | NUR ---
DR. HERNANDEZ GAVE FYI THAT SURGERY WILL BE CANCELED SUNDAY AND PT WILL TRANSFER ON SUNDAY LATE A.M. OR EARLY AFTERNOON VIA AMBULANCE TO [facility]. HE WANTED TODAY'S [facility] TO KNOW AND WANTED TO KNOW WHICH [facility] WAS SCHEDULED FOR . SPOKE WITH GILL WHO SAID SHE'D PLACE FORMS ON CHART FOR TRANSFER/TRANSPORTATION, US FAXED OVER FACE SHEET TO TRANSFER CENTER AT [facility]. SENT DETAILS TO NARGIS PETERSON ON DR. HERNANDEZ'S REQUEST SO SHE COULD PASS ON/LEAVE FYI FOR .
[2019-04-04 15:35] VITALS: BP 124/79
--- NOTE | 2019-04-04 17:14 | NUR ---
KATHLEEN notified by nursing that pt will be transferred to [facility] on Sunday per pulmonology. SW reviewed chart. Pt's surgery scheduled for Sunday at [facility] has been cancelled. Pt to have possible bronch valve procedure. Pt has been accepted by Dr. Yoni Enamorado. KATHLEEN spoke with transfer center at [facility] to confirm pt's acceptance and plan for transfer. [facility] [place] [facility] will contact [facility] warehouse team member on Sunday to coordinate transfer. Transfer form and [facility] ambulance form placed on pt's chart. Pt will need a chart copy. Pt is aware and agreeable with plan. SW is available to assist should needs arise.
[2019-04-04 19:56] VITALS: BP 99/60
[2019-04-05 04:45] VITALS: BP 108/58
[2019-04-05 07:13] VITALS: BP 127/53
--- NOTE | 2019-04-05 08:06 | NUR ---
ASSUME CARE 1900. PT/VITALS STABLE. BP RUNS SOFT. INTERMITTENT INCISIONAL PAIN NOTED. ASSESSMENT CHARTED. PROGRESSING SLOWLY TOWARDSD POC. MODERATE REST NOTED. GOAL IS PAIN MANAGEMENT AND INFECTION PREVENTION. PLAN IS POSSIBLE DICHARGE ON SUNDAY TO [facility] FOR CONTINUOUS CARE AND FOLLOW UP. WILL CONTINUE TO MONITOR AND FOLLOW WITH POC
[2019-04-05 12:05] VITALS: BP 128/59
[2019-04-05 16:05] VITALS: BP 105/66
--- NOTE | 2019-04-05 16:54 | NUR ---
ASSESSMENT CHARTED - MEDS PER MAR - PATIENT REQUESTING PAIN MEDICATION -FENTANYL Q 2 HOURS - GIVEN HHYSORCODONE FOR PAIN WELL.- PATIENT STATING THAT PAIN MEDS BRING PAIN DOWN TO THE LOSEST A 5 TODAY. CHEST TUBES REMIAN INSTIU - BUBBLING PRESENT. PATIENT UP TO THTE CHAIR - SITTING ON SIDE OF BED. PINA DIET AND FLUIDS WITH NO CO'S OF NAUSEA. PT TO TRANSFER TO [facility] TOMORROW FOR PROCEDURE. NO CO'S AT THE PRESENT TIME . VISITORS AT THE BEDSIDE.
[2019-04-05 19:25] VITALS: BP 99/79
[2019-04-06 04:10] VITALS: BP 85/66
--- NOTE | 2019-04-06 05:31 | NUR ---
ASSUME CARE 1900. PT/VITALS STABLE. BP RUNS SOFT, MD AWARE. CONSISTENT INCISIONAL PAIN NOTED. MODERATE TOLERANCE TO ACTIITY. ASSESSMETN CHARTED. POOR PROGRESSION WITH POC. MODERATE REST NOTED THROUGH NIGHT. PLAN IS FOR PT TO DISCHARGE TO [facility] FOR CONTINUUM OF CARE. WILL CONTINUE TO MONITOR AND FOLLOW [facility] POC
--- NOTE | 2019-04-06 08:16 | O ---
[facility] [place] [address] OPERATIVE REPORT Name: KEVIN HAILE Room #: 201-P [facility] IN M.R.#: [id number] Admission: 03/20/19 ������������������ Attend Phys: Larry Alan MD Discharge: ������������������ Date of : 40 Report #: [id number] THIS REPORT FOR: //name// CC: Larry Strong DATE OF SERVICE: 03/31/2019 PREOPERATIVE DIAGNOSES: Persistent air leak and pneumothorax. POSTOPERATIVE DIAGNOSES: Persistent air leak and pneumothorax. OPERATIONS: Bronchoscopy, left video-assisted thoracoscopy with resection of blebs. SURGEON: Freddy Montero M.D. VEHICLE CARE SPECIALIST: CHUCK Mendoza. ANESTHESIA: General. INDICATIONS: The patient is a 78-year-old who had a video-assisted thoracoscopy week prior. The patient has a persistent air leak and a chest tube had been pulled out on the floor inadvertently. This was replaced the first day after surgery, but the tube angled toward the diaphragm. We asked the radiologist to place a more apical tube, which they did, but this did not result in reexpansion of the lung and after waiting a reasonable amount of time, we thought the patient required a second look. FINDINGS AND TECHNIQUE: After general anesthesia was established, flexible diagnostic bronchoscopy was performed. No endobronchial lesions were noted. Double lumen tube was placed and its position ascertained bronchoscopically. The patient was positioned with left side up. Exposure was obtained through the previous thoracoscopy ports. We inspected the lung and found several areas of air leaking. These were addressed with the stapler. When this was complete, we gently insufflated the lung and irrigated it with saline and we did not see any bubbles. Therefore, I felt that this was a reasonable approach and that we should not proceed the thoracotomy in this relatively frail patient. A chest tube was brought to the lowest port and placed along the diaphragm and another port was made anterior to it and an apical tube was placed. Lung was reinflated and the two open ports were closed. The patient tolerated the procedure well and was taken to the recovery area in good condition on Precedex to avoid the [facility] [address] [place] [address] OPERATIVE REPORT Name: KEVIN HAILE Room #: 201-P [facility] IN M.R.#: [id number] Admission: 03/20/19 ������������������ Attend Phys: Larry Alan MD Discharge: ������������������ Date of : 40 Report #: [id number] obstreperous state after the first operation. All counts were reported as correct. ��������������������������������������������� <ELECTRONICALLY SIGNED> ���������������������������������������� By: Freddy Montero MD ��������������������������������������������� 04/06/19 0816 [id number] [id number] Freddy Montero MD /nt
[2019-04-06 08:26] VITALS: BP 100/66
[2019-04-06 11:20] VITALS: BP 104/62
--- NOTE | 2019-04-06 12:07 | NUR ---
REPORT CALLED LAURIE CABEZAS RN 1200.
--- NOTE | 2019-04-06 13:17 | NUR ---
PT TRNASFERRED TO [facility]IA [facility] AMBULACE. PT HAD 100MLS OUT FROM CT THIS SHIFT.
== END 2019-04-06 13:21 | disposition short-term general hospital (02) | DRG 163 ==
LOC: 2N 20:16 → ICU 20:16 → 2N 03-23 09:40 → TBA 03-26 15:19 → ICU 03-26 19:06 → 2N 03-27 16:20 → ICU 03-31 17:02 → 2N 04-01 22:50
PROVIDERS: Anesthesiology; Internal Medicine; Internal Medicine Pulmonary Disease; Nurse Practitioner Family; Physician Assistant; ADMIT Hospitalist
DX: J93.11 Primary spontaneous pneumothorax (principal); J96.01 Acute respiratory failure with hypoxia; J96.02 Acute respiratory failure with hypercapnia; J98.19 Other pulmonary collapse; E44.0 Moderate protein-calorie malnutrition; J43.9 Emphysema, unspecified; I10 Essential (primary) hypertension; F41.9 Anxiety disorder, unspecified; J93.82 Other air leak; M19.90 Unspecified osteoarthritis, unspecified site; R79.89 Other specified abnormal findings of blood chemistry; E83.42 Hypomagnesemia; D53.9 Nutritional anemia, unspecified; Z91.19 Patient's noncompliance with other medical treatment and regimen; Z87.891 Personal history of nicotine dependence; Z87.01 Personal history of pneumonia (recurrent); Z68.20 Body mass index [BMI] 20.0-20.9, adult; Z79.82 Long term (current) use of aspirin; Z79.899 Other long term (current) drug therapy; Z82.49 Family history of ischemic heart disease and other diseases of the circulatory system
CPT/HCPCS: 10078; 10081; 47405; 50010; 50101; 50386; 50417; 50445; 50455; 50497; 50739; 50740; 51489; 51687; 52255; 52265; 52266; 53078; 54118; 56462; 56524; 56526; 56528; 62110; 62900; 65020; 65040; 65105; 65129; 70005